=== PATIENT | female | born 1990 | race Caucasian/White ===

== ENCOUNTER 2016-10-13 01:53 | Emergency (ER) | payer OTHER ==
[~2016-10-13 01:53] MED LIST: AUGMENTIN875 MG PO; BENADRYL-DPS25 MG PO; COLACE100 MG PO; DESYREL-DPS50 MG PO; DUONEB DPS3 ML IH; FLEXERIL-DPS10 MG PO; LOPRESSOR DPS12.5 MG PO; MAALOX DPS30 ML PO; MUCINEX600 MG PO; MYLICON DPS80 MG PO; PEPCID DPS20 MG PO; TYLENOL DPS325 MG PO; ZOLOFT DPS25 MG PO
--- NOTE | 2016-10-13 19:12 | ER ---
ADMIT: 10/13/2016 RM/LOC: ER [facility] MR#: [id number] [facility] [address] [place], [place] [id number] AUDRA SOLIS [address] [address] Emergency Room Report SEX: F AGE: 26 : 1990 DATE: 10/13/2016 HISTORY OF PRESENT ILLNESS: The patient is a 26-year-old female with a past medical history of migraine headache, usually on the left side, came to the ER with another similar headaches, which on the left side of the head, the patient also complains of photophobia, headache is moderate to severe in severity, it started an hour and a half ago and the patient took an Excedrin, which did not resolve the pain. The patient denies any neck pain or neck stiffness or fever at home. The patient denies any trauma. PHYSICAL EXAMINATION: GENERAL: The patient was afebrile, in moderate distress, sitting in a dark room, has photophobia. HEENT: Pupils are 3 mm, reactive to light bilaterally, cranial nerve, motor and sensory and cerebellar tests are all normal grossly. TM joints are normal, and the patient has no gross hearing deficit. No bruit on the neck. HEART: Normal S1, S2 without any murmurs. LUNGS: Clear bilaterally. ABDOMEN: Soft. There is no meningismus and jolt test was negative. NECK: Soft. The rest of the physical examination is noncontributory. There is no tenderness over the temporal area and there is no over the temporal area. The patient received IV fluids, normal saline 1 L bolus, Benadryl, and Reglan IV, the pain was completely resolved. The patient was re- examined and did not develop any new symptoms or signs. The patient is stable to be discharged home to be followed up by the primary doctor. DIAGNOSIS: Acute on chronic cephalgia. Henry Sargent MD/ ricardo JOB #: [id number] CC: Henry Sargent MD, Attending Physician Jj Mendiola MD, Family Physician
== END 2016-10-13 03:20 | disposition home or self-care (01) ==
LOC: ER 01:53
DX: R51 Headache (principal); G89.29 Other chronic pain